=== PATIENT | female | born 1950 | race Caucasian/White ===

== ENCOUNTER 2016-10-24 12:12 | Emergency (ER) | payer BC, OTHER ==
[~2016-10-24] VITALS: Ht 165.1 cm; Wt 67.3 kg
[2016-10-24 12:13] VITALS: BP 137/86
[2016-10-24] MEDS ORDERED: VITA200016 PO (12:18)
[2016-10-24] MEDS ORDERED: CALC600T31 PO (12:18)
[2016-10-24] MEDS ORDERED: ALEN35TA PO (12:18)
[2016-10-24 13:24] LABS: BASO # 0.1 K/mm3 (0.0-0.2); EOS # 0.4 K/mm3 (0.0-0.50); EOS % 5.9 % (0.0-3.0); LARGE UNSTAINED CELL # 0.1 K/mm3 (0.0-0.4); LARGE UNSTAINED CELL % 1.9 % (0.0-4.0); LYMPH # 1.9 K/mm3 (1.5-4.5); LYMPH % 28.6 % (24.0-44.0); MEAN CORPUSCULAR HEMOGLOBIN 33.2 pg (27.0-33.0); MEAN CORPUSCULAR VOLUME 100.6 fl (80.0-96.0); MONO # 0.3 K/mm3 (0.0-0.8); MONO % 4.3 % (0.0-5.0); NEUTROPHILS # 3.7 K/mm3 (1.8-7.7); NEUTROPHILS % 58.4 % (36.0-66.0); PLATELET COUNT, AUTOMATED 376 k/mm3 (150-450); RED CELL DISTRIBUTION WIDTH 12.7 % (11.5-14.5); WHITE BLOOD COUNT 6.4 K/mm3 (4.0-10.0)
[2016-10-24 13:39] LABS: ALBUMIN 4.1 GM/DL (3.2-5.2); ALBUMIN/GLOBULIN RATIO 1.14 (1.00-1.93); ALKALINE PHOSPHATASE 75 U/L (45-117); ALT/SGPT 20 U/L (12-78); ANION GAP 7 MEQ/L (8-16); AST/SGOT 14 U/L (15-37); BILIRUBIN,DIRECT < 0.1 MG/DL (0.0-0.2); BILIRUBIN,TOTAL 0.6 MG/DL (0.2-1.0); BLOOD UREA NITROGEN 22 MG/DL (7-18); CALCIUM LEVEL 9.7 MG/DL (8.8-10.2); CARBON DIOXIDE LEVEL 29 MEQ/L (21-32); CHLORIDE LEVEL 105 MEQ/L (98-107); CREATININE FOR GFR 0.86 MG/DL (0.55-1.02); GLOMERULAR FILTRATION RATE > 60.0 (>45); GLUCOSE, FASTING 91 MG/DL (80-110); POTASSIUM SERUM 4.1 MEQ/L (3.5-5.1); SODIUM LEVEL 141 MEQ/L (136-145); TOTAL PROTEIN 7.7 GM/DL (6.4-8.2)
--- NOTE | 2016-10-24 13:54 | REP ---
Pelvic ultrasound including transabdominal, endovaginal and Doppler ultrasound assessment: The uterus is anteverted and normal size measuring 4.0 x 2.0 x 3.7 cm. The endometrium is not thickened measuring 5.1 mm. The endometrium has a heterogeneous appearance and there is a trace of fluid in the endometrial canal. The ovaries are normal size. Right ovary measures 1.6 x 1.1 x 1.1 cm. Left ovary measures 0.9 by 1.3 by 0.90 cm. There are no ovarian masses or cysts. There is vascular flow in both ovaries with the Doppler resistive index of intraparenchymal or the right measuring 0.53 and the left 0.64. Impression: There are no ovarian masses or cysts. There is vascular flow in both ovaries. The endometrium is not thickened, however, has heterogeneous echotexture with a tiny volume of fluid in the endometrial canal. These findings are nonspecific. Signed by Hossein De Santiago MD 10/24/2016 01:46 P
== END 2016-10-24 14:17 | disposition home or self-care (01) ==
LOC: M ED 13:09
DX: R10.31 Right lower quadrant pain (principal); R10.32 Left lower quadrant pain; K57.30 Diverticulosis of large intestine without perforation or abscess without bleeding; Z88.2 Allergy status to sulfonamides

== ENCOUNTER → 2017-07-12 | Outpatient (CLI) | payer MEDICARE | LOC: M RAD 11:36 | DX: M25.511 Pain in right shoulder (principal) | CPT/HCPCS: 73030 ==

== ENCOUNTER 2017-11-01 19:01 | Emergency (ER) | payer MEDICARE ==
[2017-11-01] MEDS: DERMABOND TOPICAL SKIN ADHESIVE TOP (19:44)
== END 2017-11-01 20:11 | disposition home or self-care (01) ==
LOC: M ED 19:01
DX: S01.81XA Laceration without foreign body of other part of head, initial encounter (principal); S00.93XA Contusion of unspecified part of head, initial encounter; W01.10XA Fall on same level from slipping, tripping and stumbling with subsequent striking against unspecified object, initial encounter; Y92.099 Unspecified place in other non-institutional residence as the place of occurrence of the external cause; Y93.9 Activity, unspecified; Y99.9 Unspecified external cause status; M81.0 Age-related osteoporosis without current pathological fracture; Z79.899 Other long term (current) drug therapy; Z88.2 Allergy status to sulfonamides
CPT/HCPCS: 70486

== ENCOUNTER → 2018-01-11 | Outpatient (CLI) | payer MEDICARE ==
[2018-01-11 09:46] LABS: HEMATOCRIT 41.2 % (36.0-47.0); HEMOGLOBIN 13.6 g/dl (12.0-15.5); MEAN CORPUSCULAR HEMOGLOBIN 32.5 pg (27.0-33.0); MEAN CORPUSCULAR VOLUME 98.6 fl (80.0-96.0); PLATELET COUNT, AUTOMATED 334 10^3/uL (150-450); RED BLOOD COUNT 4.18 10^6/uL (4.00-5.40); RED CELL DISTRIBUTION WIDTH 12.6 % (11.5-14.5); WHITE BLOOD COUNT 5.3 10^3/uL (4.0-10.0)
[2018-01-11 10:12] LABS: ESTIMATED AVERAGE GLUCOSE 108 MG/DL (60-110); HEMOGLOBIN A1c 5.4 %
[2018-01-11 10:17] LABS: ALBUMIN 3.7 GM/DL (3.2-5.2); ALBUMIN/GLOBULIN RATIO 1.32 (1.00-1.93); ALKALINE PHOSPHATASE 68 U/L (45-117); ALT/SGPT 18 U/L (12-78); ANION GAP 3 MEQ/L (8-16); AST/SGOT 14 U/L (7-37); BILIRUBIN,TOTAL 0.6 MG/DL (0.2-1.0); BLOOD UREA NITROGEN 19 MG/DL (7-18); CALCIUM LEVEL 9.3 MG/DL (8.8-10.2); CARBON DIOXIDE LEVEL 30 MEQ/L (21-32); CHLORIDE LEVEL 110 MEQ/L (98-107); CHOLESTEROL LEVEL 204 MG/DL (<200); CHOLESTEROL RISK RATIO 3.238 (<5); CREATININE FOR GFR 0.79 MG/DL (0.55-1.30); GLOMERULAR FILTRATION RATE > 60.0 (>45); GLUCOSE, FASTING 85 MG/DL (70-100); HDL CHOLESTEROL 63 MG/DL (>40); LDL CHOLESTEROL 121 MG/DL (<100); NON-HDL-C 141 MG/DL; POTASSIUM SERUM 4.8 MEQ/L (3.5-5.1); SODIUM LEVEL 143 MEQ/L (136-145); TOTAL PROTEIN 6.5 GM/DL (6.4-8.2); TRIGLYCERIDES LEVEL 100 MG/DL (<150)
[2018-01-11 13:59] LABS: TOTAL 25(OH) VITAMIN D 43.4 NG/ML (30.0-100.0)
== END ==
LOC: M LAB 08:41
DX: D64.9 Anemia, unspecified (principal); R53.83 Other fatigue; E03.9 Hypothyroidism, unspecified; Z79.899 Other long term (current) drug therapy
CPT/HCPCS: 71046

== ENCOUNTER → 2018-01-15 | Outpatient (CLI) | payer MEDICARE | LOC: M WHC 13:58 | DX: M81.0 Age-related osteoporosis without current pathological fracture (principal); Z78.0 Asymptomatic menopausal state | CPT/HCPCS: 77080 ==

== ENCOUNTER → 2019-01-02 | Outpatient (CLI) | payer MEDICARE ==
[~2019-01-02] MED LIST: ACET-683 PO; ALEN35TA37 PO; CALC600T31 PO; VITA200016 PO
[2019-01-02 09:10] LABS: HEMATOCRIT 43.6 % (36.0-47.0); HEMOGLOBIN 14.6 g/dl (12.0-15.5); MEAN CORPUSCULAR HGB CONC 33.5 g/dl (32.0-36.5); MEAN CORPUSCULAR VOLUME 98.4 fl (80.0-96.0); PLATELET COUNT, AUTOMATED 353 10^3/uL (150-450); RED BLOOD COUNT 4.43 10^6/uL (4.00-5.40); WHITE BLOOD COUNT 4.9 10^3/uL (4.0-10.0)
[2019-01-02 09:19] LABS: INR 0.94; PROTHROMBIN TIME 12.3 SECONDS (11.8-14.0)
[2019-01-02 09:48] LABS: ALBUMIN 3.7 GM/DL (3.2-5.2); ALT/SGPT 19 U/L (12-78); BILIRUBIN,TOTAL 0.7 MG/DL (0.2-1.0); BLOOD UREA NITROGEN 21 MG/DL (7-18); CALCIUM LEVEL 9.1 MG/DL (8.8-10.2); CARBON DIOXIDE LEVEL 24 MEQ/L (21-32); CHLORIDE LEVEL 111 MEQ/L (98-107); CHOLESTEROL LEVEL 220 MG/DL (<200); CHOLESTEROL RISK RATIO 3.606 (<5); CREATININE FOR GFR 0.72 MG/DL (0.55-1.30); GLOMERULAR FILTRATION RATE > 60.0 (>45); GLUCOSE, FASTING 93 MG/DL (70-100); HDL CHOLESTEROL 61 MG/DL (>40); LDL CHOLESTEROL 136 MG/DL (<100); NON-HDL-C 159 MG/DL; POTASSIUM SERUM 4.2 MEQ/L (3.5-5.1); SODIUM LEVEL 143 MEQ/L (136-145); TOTAL PROTEIN 6.5 GM/DL (6.4-8.2); TRIGLYCERIDES LEVEL 116 MG/DL (<150)
--- NOTE | 2019-01-02 20:36 | ECGEPIP ---
[facility] Test Date: 2019-01-02 Pat Name: CYNTHIA BROCK Department: Room: - Gender: Female [employer]ability Analyst: KARYN : 1950 Requested By: Kaylee Suero Order Number: [id number] Reading MD: Ramos Patterson Measurements Intervals [place] Rate: 69 P: 70 CA: 205 QRS: 35 QRSD: 78 T: 63 QT: 414 QTc: 445 Interpretive Statements SINUS RHYTHM WITH SINUS ARRHYTHMIA Poor R wave progression V1-V3 Electronically Signed on 01-02-2019 20:36:26 EDT by Ramos Patterson
--- NOTE | 2019-01-03 08:35 | REP ---
Clinical: Preoperative assessment . Comparison: 01/11/2018 . Technique: PA and lateral. Findings: The mediastinum and cardiac silhouette are normal. The lung padilla are clear and without acute consolidation, effusion, or pneumothorax. The skeletal structures are intact and normal. Impression: 1. No acute cardiopulmonary process. Electronically Signed by Rubén Rentreia MD 01/02/2019 08:52 A
== END ==
LOC: M LAB 08:11
PROVIDERS: ATTEND Family Medicine
DX: E03.9 Hypothyroidism, unspecified (principal); Z01.818 Encounter for other preprocedural examination

== ENCOUNTER 2020-04-26 12:48 | Emergency (ER) | payer MEDICARE ==
[~2020-04-26] VITALS: Ht 162.6 cm; Wt 61.4 kg
[~2020-04-26 12:48] MED LIST changes: -ALEN35TA37 PO; +ALEN35TA54 PO
--- NOTE | 2020-04-26 13:43 | REP ---
INDICATION: fall ankle pain COMPARISON: None. TECHNIQUE: AP, lateral, bilateral oblique views. FINDINGS: Oblique nondisplaced fracture of the distal fibular metaphysis/lateral malleolus with overlying soft tissue swelling. Ankle mortise intact. Remainder of examination appears grossly normal. IMPRESSION: Oblique nondisplaced fracture of the distal fibula with swelling. <Electronically signed by Rubén Renteria > 04/26/20 [id number]
[2020-04-26] MEDS ORDERED: NORC1TAB7 PO (14:44)
[2020-04-26 14:45] VITALS: BP 145/69
== END 2020-04-26 15:11 | disposition home or self-care (01) ==
LOC: M ED 12:48
DX: S82.435A Nondisplaced oblique fracture of shaft of left fibula, initial encounter for closed fracture (principal); W00.0XXA Fall on same level due to ice and snow, initial encounter; Y92.410 Unspecified street and highway as the place of occurrence of the external cause; Y93.9 Activity, unspecified; Y99.9 Unspecified external cause status; Z88.2 Allergy status to sulfonamides

== ENCOUNTER → 2020-08-21 | Outpatient (CLI) | payer MEDICARE ==
[~2020-08-21] MED LIST changes: +BENA25CA4 PO; +NIAC500T93 PO; +NORC1TAB7 PO; +VITA500C24 PO; +VITA500T40 PO; +[UNRECOGNIZED DRUG - CODE] PO
--- NOTE | 2020-08-21 09:28 | REP ---
INDICATION: ANEMIA-LABS AND EKG FIRST COMPARISON: 01/02/2019 TECHNIQUE: PA and lateral. FINDINGS: The mediastinum and cardiac silhouette are normal. The lung padilla are clear and without acute consolidation, effusion, or pneumothorax. The skeletal structures are intact and normal. IMPRESSION: No acute cardiopulmonary process. <Electronically signed by Rubén Renteria > 08/21/20 [id number]
[2020-08-21 09:45] LABS: HEMATOCRIT 44.1 % (36.0-47.0); HEMOGLOBIN 14.7 g/dl (12.0-15.5); MEAN CORPUSCULAR HEMOGLOBIN 32.9 pg (27.0-33.0); MEAN CORPUSCULAR HGB CONC 33.3 g/dl (32.0-36.5); MEAN CORPUSCULAR VOLUME 98.7 fl (80.0-96.0); PLATELET COUNT, AUTOMATED 336 10^3/uL (150-450); RED BLOOD COUNT 4.47 10^6/uL (4.00-5.40); WHITE BLOOD COUNT 4.8 10^3/uL (4.0-10.0)
[2020-08-21 10:05] LABS: HEMOGLOBIN A1c 5.2 %
[2020-08-21 10:09] LABS: ALBUMIN 3.8 GM/DL (3.2-5.2); ALT/SGPT 14 U/L (12-78); BILIRUBIN,TOTAL 0.6 MG/DL (0.2-1.0); BLOOD UREA NITROGEN 18 MG/DL (7-18); CALCIUM LEVEL 9.9 MG/DL (8.8-10.2); CARBON DIOXIDE LEVEL 25 MEQ/L (21-32); CHLORIDE LEVEL 110 MEQ/L (98-107); CHOLESTEROL LEVEL 232 MG/DL (<200); CHOLESTEROL RISK RATIO 3.803 (<5); CREATININE FOR GFR 0.65 MG/DL (0.55-1.30); GLOMERULAR FILTRATION RATE > 60.0 (>45); GLUCOSE, FASTING 93 MG/DL (70-100); HDL CHOLESTEROL 61 MG/DL (>40); LDL CHOLESTEROL 151 MG/DL (<100); NON-HDL-C 171 MG/DL; POTASSIUM SERUM 4.3 MEQ/L (3.5-5.1); SODIUM LEVEL 141 MEQ/L (136-145); TOTAL 25(OH) VITAMIN D 34.3 NG/ML (30.0-100.0); TOTAL PROTEIN 6.5 GM/DL (6.4-8.2); TRIGLYCERIDES LEVEL 101 MG/DL (<150)
--- NOTE | 2020-08-21 20:40 | ECGEPIP ---
[facility] Test Date: 2020-08-21 Pat Name: CYNTHIA BROCK Department: Room: - Gender: Female [employer]: CHINTAN : 1950 Requested By: Kaylee Suero Order Number: [id number] Reading MD: Raymond Gunter Measurements Intervals [place] Rate: 69 P: 43 CA: 164 QRS: 34 QRSD: 72 T: 62 QT: 384 QTc: 411 Interpretive Statements SINUS RHYTHM SIMILAR TO 01/02/19 Electronically Signed on 08-21-2020 20:40:01 EDT by Raymond Gunter
== END ==
LOC: M LAB 08:40
PROVIDERS: ATTEND Family Medicine
DX: Z01.818 Encounter for other preprocedural examination (principal); D64.9 Anemia, unspecified; R53.83 Other fatigue; E03.9 Hypothyroidism, unspecified; Z79.899 Other long term (current) drug therapy

== ENCOUNTER 2020-08-23 12:49 | Emergency (ER) | payer MEDICARE ==
[~2020-08-23] VITALS: Ht 162.6 cm; Wt 62.4 kg
[~2020-08-23 12:49] MED LIST changes: -BENA25CA4 PO; -NIAC500T93 PO; -VITA500C24 PO; -VITA500T40 PO; -[UNRECOGNIZED DRUG - CODE] PO
[2020-08-23 12:50] VITALS: BP 133/69
[2020-08-23] MEDS ORDERED: VITA500T40 PO (13:01)
[2020-08-23] MEDS ORDERED: [UNRECOGNIZED DRUG - CODE] PO (13:01)
[2020-08-23] MEDS ORDERED: NIAC500T93 PO (13:01)
[2020-08-23] MEDS ORDERED: BENA25CA4 PO (13:01)
[2020-08-23] MEDS ORDERED: VITA500C24 PO (13:01)
== END 2020-08-23 13:48 | disposition left against medical advice (07) ==
LOC: M ED 12:49
DX: Z53.21 Procedure and treatment not carried out due to patient leaving prior to being seen by health care provider (principal)

== ENCOUNTER → 2020-09-03 | Outpatient (CLI) | payer MEDICARE ==
[~2020-09-03] MED LIST changes: +BENA25CA4 PO; +NIAC500T93 PO; +VITA500C24 PO; +VITA500T40 PO; +[UNRECOGNIZED DRUG - CODE] PO
--- NOTE | 2020-09-03 14:17 | REP ---
INDICATION: TAD SCR MAMMO/V76.10. COMPARISON: Multiple. No prior DBT images to review. TECHNIQUE: Digital screening mammography was carried out bilaterally in the CC and MLO projections and compared to the prior exams. By history, the patient has no complaints of a palpable breast abnormality or other significant breast complaints. FINDINGS: The breasts are unchanged in size and shape. In the upper outer quadrant of the right breast there is a potential herber asymmetric density. No other suspicious features are seen in either breast. Benign calcifications are again present. There is no skin thickening or nipple retraction. The Volpara volumetric breast density pattern is b. IMPRESSION: BIRADS/ACR category 0. Potential herber asymmetric density seen in the right breast, as described above, and for which diagnostic digital magnified spot compression views are recommended in the CC and MLO projections along with diagnostic ultrasonography if indicated. This patient's Tyrer-Cuzick lifetime breast cancer risk assessment score is 4.6%. This mammogram was interpreted with the aid of an FDA-approved computer-aided detection system. The patient states she had a clinical breast exam in July 2020. The patient letter being requested is M0. RECOMMENDATION: As above <Electronically signed by Rosalino Carney > 09/03/20 [id number]
== END ==
LOC: M WHC 12:50
PROVIDERS: ATTEND Family Medicine
DX: R92.8 Other abnormal and inconclusive findings on diagnostic imaging of breast (principal); N63.11 Unspecified lump in the right breast, upper outer quadrant

== ENCOUNTER → 2020-10-08 | Outpatient (CLI) | payer MEDICARE ==
--- NOTE | 2020-10-08 11:06 | REP ---
INDICATION: ADDITIONAL VIEW RT BREAST. COMPARISON: Prior screening mammogram 09/03/2020 which showed a potential herber density. TECHNIQUE: Diagnostic digital magnified spot compression views of the right breast over the region of interest were obtained along with focused ultrasonography. FINDINGS: The small nodule persists on the spot compression views. It has a notched lucent center. Focused right breast ultrasonography shows a small peripherally hypoechoic centrally echogenic reniform shaped nodule.. Color Doppler imaging of this nodule shows a small vascular hilum. IMPRESSION: BIRADS/ACR category 2 benign mammogram and benign right breast ultrasound. The finding is consistent with benign intramammary lymph node. There is no mammographic evidence or ultrasonographic evidence of malignant alteration of the right breast. The patient letter being requested is M1. RECOMMENDATION: Repeat screening mammography recommended 1 year (for women over 40). <Electronically signed by Rosalino Carney > 10/08/20 [id number]
== END ==
LOC: M WHC 07:55
PROVIDERS: ATTEND Family Medicine
DX: N60.81 Other benign mammary dysplasias of right breast (principal)

== ENCOUNTER → 2021-09-23 | Outpatient (CLI) | payer MEDICARE ==
[~2021-09-23] MED LIST changes: -ALEN35TA54 PO; +ALEN35TA56 PO; +VITA-325 PO; -[UNRECOGNIZED DRUG - CODE] PO
[2021-09-23 11:29] LABS: HEMATOCRIT 44.9 % (36.0-47.0); HEMOGLOBIN 14.7 g/dl (12.0-15.5); MEAN CORPUSCULAR HEMOGLOBIN 32.8 pg (27.0-33.0); MEAN CORPUSCULAR HGB CONC 32.7 g/dl (32.0-36.5); MEAN CORPUSCULAR VOLUME 100.2 fl (80.0-96.0); PLATELET COUNT, AUTOMATED 329 10^3/uL (150-450); RED BLOOD COUNT 4.48 10^6/uL (4.00-5.40); WHITE BLOOD COUNT 5.1 10^3/uL (4.0-10.0)
[2021-09-23 11:59] LABS: HEMOGLOBIN A1c 5.2 %
[2021-09-23 12:14] LABS: ALBUMIN 3.7 GM/DL (3.2-5.2); ALT/SGPT 23 U/L (12-78); BILIRUBIN,TOTAL 0.7 MG/DL (0.2-1.0); BLOOD UREA NITROGEN 19 MG/DL (7-18); CALCIUM LEVEL 10.1 MG/DL (8.8-10.2); CARBON DIOXIDE LEVEL 28 MEQ/L (21-32); CHLORIDE LEVEL 110 MEQ/L (98-107); CHOLESTEROL LEVEL 227 MG/DL (<200); CHOLESTEROL RISK RATIO 3.388 (<5); CREATININE FOR GFR 0.73 MG/DL (0.55-1.30); GLOMERULAR FILTRATION RATE > 60.0 (>45); GLUCOSE, FASTING 90 MG/DL (70-100); HDL CHOLESTEROL 67 MG/DL (>40); IRON (FE) 77 UG/DL (50-170); LDL CHOLESTEROL 143 MG/DL (<100); NON-HDL-C 160 MG/DL; PERCENT SATURATION 28.1 % (13.2-45.0); POTASSIUM SERUM 4.3 MEQ/L (3.5-5.1); SODIUM LEVEL 144 MEQ/L (136-145); TOTAL 25(OH) VITAMIN D 33.6 NG/ML (30.0-100.0); TOTAL IRON BINDING CAPACITY 274 UG/DL (250-450); TOTAL PROTEIN 6.9 GM/DL (6.4-8.2); TRIGLYCERIDES LEVEL 86 MG/DL (<150)
== END ==
LOC: M LAB 10:17
PROVIDERS: ATTEND Family Medicine
DX: D64.9 Anemia, unspecified (principal); R53.83 Other fatigue; E03.9 Hypothyroidism, unspecified; Z79.899 Other long term (current) drug therapy

== ENCOUNTER → 2021-11-03 | Outpatient (CLI) | payer MEDICARE | LOC: M WHC 08:50 | PROVIDERS: ATTEND Family Medicine | DX: Z12.31 Encounter for screening mammogram for malignant neoplasm of breast (principal) ==

== ENCOUNTER → 2022-07-26 | Outpatient (CLI) | payer MEDICARE ==
[2022-07-26 10:37] LABS: HEMATOCRIT 43.8 % (36.0-47.0); HEMOGLOBIN 14.3 g/dl (12.0-15.5); MEAN CORPUSCULAR HEMOGLOBIN 33.1 pg (27.0-33.0); MEAN CORPUSCULAR HGB CONC 32.6 g/dl (32.0-36.5); MEAN CORPUSCULAR VOLUME 101.4 fl (80.0-96.0); PLATELET COUNT, AUTOMATED 354 10^3/uL (150-450); RED BLOOD COUNT 4.32 10^6/uL (4.00-5.40); WHITE BLOOD COUNT 5.1 10^3/uL (4.0-10.0)
[2022-07-26 10:52] LABS: HEMOGLOBIN A1c 5.2 % (4.0-6.0)
[2022-07-26 10:56] LABS: ALBUMIN 3.6 G/DL (3.2-5.2); ALKALINE PHOSPHATASE 67 U/L (46-116); ALT/SGPT 16 U/L (7.0-40); AST/SGOT 17 U/L (<34); BILIRUBIN,TOTAL 0.7 MG/DL (0.3-1.2); BLOOD UREA NITROGEN 18 MG/DL (9-23); CARBON DIOXIDE LEVEL 32 MMOL/L (20-31); CHLORIDE LEVEL 106 MMOL/L (98-107); CHOLESTEROL LEVEL 202 MG/DL (<200); CHOLESTEROL RISK RATIO 3.51 (<5); CREATININE FOR GFR 0.75 MG/DL (0.55-1.30); GLOMERULAR FILTRATION RATE > 60.0 (>39); GLUCOSE, FASTING 84 MG/DL (74-106); HDL CHOLESTEROL 57.4 MG/DL (>40); LDL CHOLESTEROL 127.8 MG/DL (<100); NON-HDL-C 144.6 MG/DL; POTASSIUM SERUM 4.1 MMOL/L (3.5-5.1); SODIUM LEVEL 143 MMOL/L (136-145); TOTAL PROTEIN 6.2 G/DL (5.7-8.2); TRIGLYCERIDES LEVEL 84 MG/DL (<150)
[2022-07-26 10:57] LABS: THYROID STIMULATING HORMONE 3.221 uIU/ML (0.55-4.78)
== END ==
LOC: M RAD 09:20
PROVIDERS: ATTEND Family Medicine
DX: J44.9 Chronic obstructive pulmonary disease, unspecified (principal); E78.5 Hyperlipidemia, unspecified; R73.09 Other abnormal glucose

== ENCOUNTER → 2022-08-15 | Outpatient (CLI) | payer MEDICARE | LOC: M WHC 09:21 | PROVIDERS: ATTEND Family Medicine | DX: M81.0 Age-related osteoporosis without current pathological fracture (principal) ==

== ENCOUNTER → 2022-12-20 | Outpatient (CLI) | payer MEDICARE | LOC: M WHC 11:53 | PROVIDERS: ATTEND Family Medicine | DX: Z12.31 Encounter for screening mammogram for malignant neoplasm of breast (principal) ==

== ENCOUNTER → 2023-02-02 | Outpatient (CLI) | payer MEDICARE | LOC: M WUC 13:04 | PROVIDERS: ATTEND Student in an Organized Health Care Education/Training Program | DX: M25.571 Pain in right ankle and joints of right foot (principal) ==

== ENCOUNTER 2023-03-20 08:27 | Day surgery (SDC) | payer MEDICARE ==
[~2023-03-20] VITALS: Ht 162.6 cm; Wt 61.7 kg
[~2023-03-20 08:27] MED LIST changes: +ASPI81TA26 PO; +CALC600T60 PO; +NS 1,000 ML IV ONE; +OMEG10002 PO; +ROSU10TA6 PO; +VITA100093 PO; +VITMTA PO; +ZINC50TA34 PO
[2023-03-20 10:15] VITALS: TEMP 96.9
[2023-03-20 10:40] VITALS: BP 112/56; O2SAT 99
== END 2023-03-20 10:45 | disposition home or self-care (01) ==
LOC: M OPP 08:27
PROVIDERS: ATTEND Internal Medicine Gastroenterology
DX: Z12.11 Encounter for screening for malignant neoplasm of colon (principal); Z12.12 Encounter for screening for malignant neoplasm of rectum; D12.5 Benign neoplasm of sigmoid colon; D12.2 Benign neoplasm of ascending colon; K57.30 Diverticulosis of large intestine without perforation or abscess without bleeding; K64.8 Other hemorrhoids; K64.4 Residual hemorrhoidal skin tags; Z79.82 Long term (current) use of aspirin; Z88.2 Allergy status to sulfonamides; Z88.8 Allergy status to other drugs, medicaments and biological substances

== ENCOUNTER → 2023-05-09 | Outpatient (CLI) | payer MEDICARE ==
[~2023-05-09] MED LIST changes: -NS 1,000 ML IV ONE
== END ==
LOC: M SOG 07:52
PROVIDERS: ATTEND Physician Assistant
DX: M25.571 Pain in right ankle and joints of right foot (principal); M77.31 Calcaneal spur, right foot

== ENCOUNTER → 2023-05-26 | Outpatient (CLI) | payer MEDICARE | LOC: M PLARAD 10:13 | PROVIDERS: ATTEND Physician Assistant | DX: M25.571 Pain in right ankle and joints of right foot (principal) ==

== ENCOUNTER → 2023-10-04 | Outpatient (CLI) | payer MEDICARE ==
[~2023-10-04] MED LIST changes: -ROSU10TA6 PO; +ROSU10TA61 PO
== END ==
LOC: M WUC 14:16
PROVIDERS: ATTEND Nurse Practitioner Family
DX: R07.82 Intercostal pain (principal)

== ENCOUNTER → 2024-01-22 | Outpatient (CLI) | payer MEDICARE | LOC: M WHC 14:26 | PROVIDERS: ATTEND Family Medicine | DX: Z12.31 Encounter for screening mammogram for malignant neoplasm of breast (principal); R92.313 Mammographic fatty tissue density, bilateral breasts ==

== ENCOUNTER → 2024-05-07 | Outpatient (CLI) | payer MEDICARE ==
[2024-05-07 11:09] LABS: HEMATOCRIT 42.6 % (36.0-47.0); HEMOGLOBIN 14.1 g/dl (12.0-15.5); MEAN CORPUSCULAR HEMOGLOBIN 32.9 pg (27.0-33.0); MEAN CORPUSCULAR HGB CONC 33.1 g/dl (32.0-36.5); MEAN CORPUSCULAR VOLUME 99.3 fl (80.0-96.0); PLATELET COUNT, AUTOMATED 307 10^3/uL (150-450); RED BLOOD COUNT 4.29 10^6/uL (4.00-5.40); WHITE BLOOD COUNT 5.1 10^3/uL (4.0-10.0)
[2024-05-07 11:18] LABS: HEMOGLOBIN A1c 5.3 % (4.0-6.0)
[2024-05-07 12:13] LABS: ALBUMIN 3.8 G/DL (3.2-5.2); ALKALINE PHOSPHATASE 61 U/L (35-104); ALT/SGPT 20 U/L (7.0-40); AST/SGOT 15 U/L (<34); BILIRUBIN,TOTAL 0.7 MG/DL (0.3-1.2); BLOOD UREA NITROGEN 24 MG/DL (9-23); CALCIUM LEVEL 10.3 MG/DL (8.3-10.6); CARBON DIOXIDE LEVEL 30 MMOL/L (20-31); CHLORIDE LEVEL 106 MMOL/L (98-107); CHOLESTEROL LEVEL 155 MG/DL (<200); CHOLESTEROL RISK RATIO 2.14 (<5); CREATININE FOR GFR 0.82 MG/DL (0.55-1.30); GLOMERULAR FILTRATION RATE > 60.0 (>39); GLUCOSE, FASTING 82 MG/DL (74-106); HDL CHOLESTEROL 72.1 MG/DL (>40); LDL CHOLESTEROL 72.9 MG/DL (<100); NON-HDL-C 82.9 MG/DL; POTASSIUM SERUM 4.5 MMOL/L (3.5-5.1); SODIUM LEVEL 145 MMOL/L (136-145); THYROID STIMULATING HORMONE 3.085 uIU/ML (0.55-4.78); TOTAL 25(OH) VITAMIN D 60.1 NG/ML (20.0-100.0); TOTAL PROTEIN 6.4 G/DL (5.7-8.2); TRIGLYCERIDES LEVEL 50 MG/DL (<150)
== END ==
LOC: M LAB 09:10
PROVIDERS: ATTEND Family Medicine
DX: R53.83 Other fatigue (principal); E03.9 Hypothyroidism, unspecified; D64.9 Anemia, unspecified; Z79.899 Other long term (current) drug therapy